=== PATIENT | female | born 1955 | race Caucasian/White ===

== ENCOUNTER 2017-07-25 09:24 | Day surgery (SDC) | payer BC ==
[2017-07-22 09:38] VITALS: BMI 28.3
[2017-07-25 10:13] LABS: #Basophils 0.1 thou/uL (0.0-0.2); #Eosinphils 0.1 thou/uL (0.0-0.7); #Lymphocytes 1.4 thou/uL (1.20-3.40); #Monocytes 0.5 thou/uL (0.11-0.59); #Neutrophils 3.8 thou/uL (1.40-6.50); %Basophils 1.1 % (0.0-1.0); %Eosinophils 1.8 % (0.0-10.0); %Lymphocytes 24.2 % (21.0-51.0); %Monocytes 8.9 % (0.0-10.0); %Neutrophils 64.1 % (42.0-75.0); Mean Corpuscular HGB CONC 33.4 g/dL (32.0-36.0); Mean Corpuscular Hemoglobin 31.4 pg (27.0-31.0); Mean Platelet Volume 7.3 fL (7.4-10.4); Platelet Count 268 thou/uL (130-400); RBC Distribution Width 12.2 % (11.5-14.5); Red Blood Cell (RBC) Count 4.77 mill/uL (4.20-5.40)
[2017-07-25 10:35] LABS: Anion Gap 8 mmol/L (10-20); BUN (Urea Nitrogen) 15 mg/dL (9.8-20.1); Calc. Creatinine Clearance 90 mL/min (70-130); Calcium 9.1 mg/dL (7.8-10.44); Carbon Dioxide 25 mmol/L (23-31); Chloride 111 mmol/L (98-107); Estimated GFR-MDRD 73; Glucose 89 mg/dL (80-115); Sodium 140 mmol/L (136-145)
[2017-07-25] MEDS ORDERED: Midazolam HCl 2 mg/2 ml Vial ONE (10:43)
[2017-07-25] MEDS ORDERED: Levofloxacin 500 mg/D5W 100 ml Premix Bag ONE (10:58)
[2017-07-25] MEDS ORDERED: Clindamycin/D5W 900 mg/50 ml Premix Bag ONE (10:58)
[2017-07-25] MEDS ORDERED: Glycopyrrolate 0.2 MG/ML 5 ML SYRINGE ONE (11:58)
[2017-07-25] MEDS ORDERED: Dexamethasone 20 MG/5 ML VIAL ONE (11:58)
[2017-07-25] MEDS ORDERED: Lidocaine 1% PF 5 ML VIAL ONE (11:58)
[2017-07-25] MEDS ORDERED: Ondansetron HCl/PF 4 MG/2 ML Vial ONE ×2 (11:58→13:54)
[2017-07-25] MEDS ORDERED: PROPOFOL 200 MG/20 ML VIAL ONE (11:58)
[2017-07-25] MEDS ORDERED: Sodium Chloride 0.9% 10 ML ONE (13:08)
[2017-07-25] MEDS ORDERED: HYDROmorphone 0.5 MG/0.5 ML SYRINGE ONE ×2 (13:18→14:29)
--- NOTE | 2017-07-25 14:44 | OP ---
DATE OF PROCEDURE: 07/25/2017 SURGEON: Dylon Levy M.D. [employer]OCKROOM WORKER: Ravi Georges PA-C PROCEDURE: Right L5-S1 laminectomy, facetectomy, foraminotomy, interbody arthrodesis, intravertebral biomechanical device, local morselized autograft, demineralized bone matrix, posterolateral arthrode sis and pedicle screw instrumentation L5-S1. PROCEDURE IN DETAIL: The patient was brought to the operating room and intubated. She was rolled in the prone position on gel-filled chest rolls. Incision was made exposing L5 and S1 bilaterally and our level was confirmed by x-ray. We identified the prior central laminectomy defect and then expose d the posterolateral surfaces bilaterally. We performed a right L5-S1 laminectomy, facetectomy and f oraminotomy, completely compressing the right L5 and right S1 nerve roots. Next, pedicle screws were placed at right L5 and right S1 using lateral fluoroscopic guidance. The disk itself was incised an d debrided and the bony endplates decorticated for the purpose of arthrodesis. An appropriately size d intravertebral biomechanical PEEK device was brought into the field, filled with demineralized bone matrix, local morselized autograft, and tapped into place securely at L5-S1. Next, a clark was secure d between the pedicle screws, connected by nuts which were final tightened. The wound was extensivel y irrigated, immaculate hemostasis was secured. Vancomycin powder was applied and the wound was clos ed in anatomic layers after placement of demineralized bone matrix and local morselized autograft ove r the posterolateral surfaces.
[2017-07-25] MEDS ORDERED: Promethazine HCl 25 MG/ML VIAL IM PRN (14:49)
[2017-07-25] MEDS ORDERED: Promethazine HCl 25 MG/ML VIAL SLOW IVP PRN (14:49)
[2017-07-25] MEDS ORDERED: Meperidine HCl/PF 25 MG/ML VIAL SLOW IVP PRN (14:49)
[2017-07-25] MEDS ORDERED: Ondansetron HCl/PF 4 MG/2 ML Vial IVP PRN (14:49)
[2017-07-25] MEDS ORDERED: Fentanyl 100 MCG/2 ML VIAL ONE (14:58)
[2017-07-25] MEDS ORDERED: HYDROcodone/Acetaminophen 10/325 mg Tablet ONE (16:10)
--- NOTE | 2017-07-27 20:12 | EKG ---
Test Reason : PREOP Blood Pressure : / mmHG Vent. Rate : 081 BPM Atrial Rate : 081 BPM P-R Int : 160 ms QRS Dur : 086 ms QT Int : 380 ms P-R-T Axes : 060 033 042 degrees QTc Int : 441 ms Normal sinus rhythm Normal ECG When compared with ECG of 06-SEP-2014 14:22, No significant change was found Confirmed by WILLAM GRAY (2) on 07/27/2017 8:12:21 PM Referred By: JIMMIE Confirmed By:WILLAM GRAY
== END 2017-07-25 17:45 | disposition home or self-care (01) ==
LOC: SDC 09:24
PROVIDERS: ATTEND Neurological Surgery
PROC: 0SG30AJ Fusion of Lumbosacral Joint with Interbody Fusion Device, Posterior Approach, Anterior Column, Open Approach (ICD-10-PCS; principal; 2017-07-25)
DX: M54.16 Radiculopathy, lumbar region (principal); Z88.0 Allergy status to penicillin; Z88.5 Allergy status to narcotic agent
CPT/HCPCS: 36415; 76001; 80048; 85025; 93005; 93010; 96374; A4216; C1713; C1768; J1100; J1170; J1956; J2001; J2250; J2405; J2704; J3010; J3370; J3490

== ENCOUNTER 2017-08-10 15:39 | Outpatient (CLI) | payer BC ==
--- NOTE | 2017-08-10 16:06 | RAD ---
LUMBAR SPINE TWO VIEWS: History: Lumbar radiculopathy. Follow up surgery. FINDINGS: Lumbar vertebrae maintain normal height and alignment. Pedicle screws are seen on the right transfixi ng the L5-S1. Interbody implant at L5-S1. Mild degenerative spurring. IMPRESSION: Post-operative and degenerative changes of the lumbar spine noted. POS: [facility]
== END 2017-08-10 15:40 | disposition home or self-care (01) ==
LOC: TBSIIMAG 15:39
PROVIDERS: ATTEND Neurological Surgery
DX: M47.26 Other spondylosis with radiculopathy, lumbar region (principal); Z98.890 Other specified postprocedural states
CPT/HCPCS: 72100

== ENCOUNTER 2017-09-29 14:03 | Outpatient (CLI) | payer BC ==
--- NOTE | 2017-09-29 15:27 | RAD ---
LUMBAR SPINE RADIOGRAPH SERIES: Date: 09/29/17 INDICATION: Prior surgery, follow-up. Reference made to 08/10/17. FINDINGS: Right side posterior fusion at L5-S1 is redemonstrated, with stable appearing hardware alignment. The re is no evidence of significant subluxation. No compression deformity. Intervertebral disc space pro sthesis at L5-S1 is grossly stable in configuration. There is atherosclerotic vascular calcification. IMPRESSION: Stable postoperative lumbar spine. POS: [facility]
== END 2017-09-29 14:04 | disposition home or self-care (01) ==
LOC: TBSIIMAG 14:03
PROVIDERS: ATTEND Neurological Surgery
DX: M51.36 Other intervertebral disc degeneration, lumbar region (principal); Z98.890 Other specified postprocedural states
CPT/HCPCS: 72100

== ENCOUNTER 2018-03-23 11:26 | Outpatient (CLI) | payer BC ==
--- NOTE | 2018-03-23 12:12 | RAD ---
TWO VIEWS LUMBOSACRAL SPINE: Comparison: 09-29-17 History: Low back pain with numbness and pain going down both legs. FINDINGS: Two views lumbosacral spine shows normal height and alignment of the vertebral bodies and interverteb ral body discs without fracture or subluxation. Post-surgical changes at L5-S1 with right sided pedic le screws seen. A disc spacer is seen in the L5-S1 disc space. No perihardware lucencies identified. No changes compared to the prior exam. IMPRESSION: Stable exam. POS: [facility]
== END 2018-03-23 11:27 | disposition home or self-care (01) ==
LOC: TBSIIMAG 11:26
PROVIDERS: ATTEND Neurological Surgery
DX: M54.16 Radiculopathy, lumbar region (principal)
CPT/HCPCS: 72100

== ENCOUNTER 2022-01-08 10:46 | Outpatient (CLI) | payer MEDICARE ==
[2022-01-08 11:53] LABS: Hemoglobin 14.2 g/dL (12.0-15.5); Mean Corpuscular HGB CONC 32.6 g/dL (32.0-36.0); Mean Corpuscular Hemoglobin 30.9 pg (27.0-33.0); Mean Corpuscular Volume 94.8 fl (81.6-98.3); Mean Platelet Volume 9.4 fl (7.4-10.4); Platelet Count 306 10x3/uL (150-450); RBC Distribution Width 13.8 % (11.5-14.5); White Blood Cell (WBC) Count 8.1 10x3/uL (3.5-10.5)
[2022-01-08 12:02] LABS: Anion Gap 12 mmol/L (10-20); BUN (Urea Nitrogen) 24 mg/dL (9.8-20.1); Calc. Creatinine Clearance 0 mL/min (70-130); Carbon Dioxide 27 mmol/L (23-31); Chloride 104 mmol/L (98-107); Estimated GFR 58; Glucose 97 mg/dL (80-115); Potassium 4.9 mmol/L (3.5-5.1); Sodium 138 mmol/L (136-145)
== END 2022-01-08 10:47 | disposition home or self-care (01) ==
LOC: LABBT 10:46
PROVIDERS: ATTEND Neurological Surgery
DX: Z01.818 Encounter for other preprocedural examination (principal); M54.16 Radiculopathy, lumbar region
CPT/HCPCS: 80048; 85027; 93005; 93010

== ENCOUNTER 2022-01-28 08:50 | Outpatient (CLI) | payer MEDICARE | END 2022-01-28 08:51 | disposition home or self-care (01) | LOC: TBSIIMAG 08:50 | PROVIDERS: ATTEND Neurological Surgery | DX: M54.16 Radiculopathy, lumbar region (principal); Z98.890 Other specified postprocedural states | CPT/HCPCS: 72100 ==

== ENCOUNTER 2022-03-25 13:46 | Outpatient (CLI) | payer MEDICARE | END 2022-03-25 13:47 | disposition home or self-care (01) | LOC: TBSIIMAG 13:46 | PROVIDERS: ATTEND Neurological Surgery | DX: M47.26 Other spondylosis with radiculopathy, lumbar region (principal); M46.06 Spinal enthesopathy, lumbar region; Z98.890 Other specified postprocedural states | CPT/HCPCS: 72100 ==